=== PATIENT | male | born 1995 | race Caucasian/White ===

== ENCOUNTER 2019-11-27 10:12 | Emergency (ER) | payer OTHER ==
[2019-11-27] MEDS ORDERED: Sodium Chloride 0.9% 10 ML Syringe FLUSH PRN ×2 (10:34→10:42)
[2019-11-27] MEDS ORDERED: HYDROmorphone 0.5 MG/0.5 ML Syringe IVPUSH ONE (10:36)
[2019-11-27] MEDS ORDERED: Iopamidol 755 Mg/ML 100 ML Bottle IVPUSH ONE (10:42)
--- NOTE | 2019-11-27 11:54 | CT ---
CT abdomen and pelvis Technique: Multiple axial sections were obtained from above the dome of the diaphragm inferiorly through the pubic symphysis. Intravenous contrast was utilized. No oral contrast has been given. Delayed images were also obtained through the bladder. Comparison: No prior abdominal imaging is available. Findings: Visualized lung bases show nothing acute. Liver shows no focal parenchymal abnormality. Spleen appears within normal limits. Adrenal glands show no nodule. Kidneys show symmetric contrast enhancement without hydronephrosis or mass. Gallbladder contains no calcified gallstones. Pancreas appears within normal limits. Aorta shows no aneurysm. No retroperitoneal adenopathy or mesenteric abnormalities are seen. No free fluid or inflammatory change is appreciated. Appendix is believed to be seen and it is felt to be normal in size. Delayed images show contrast within the distal ureters and bladder. Bone window settings were reviewed which show spondylolytic defects at L5-S1. No acute osseous finding is appreciated. Impression: 1. Nothing acute is appreciated on CT study of the abdomen and pelvis. Diagnostic code #2 This report was dictated in [place] Standard Time
--- NOTE | 2019-11-27 12:04 | CT ---
CT lumbar spine Technique: Multiple axial sections were obtained from above the T10-T11 disc through the L5-S1 disc. Reconstructed coronal and sagittal images were obtained. T9-T10: Fairly severe disc space narrowing is seen. No central canal stenosis or neural foraminal stenosis is seen. T10-T11: Posterior disc is preserved. No central canal stenosis or neural foraminal stenosis is seen. T11-T12: Mild posterior disc space narrowing is seen. Posterior disc is preserved. No central canal stenosis or neural foraminal stenosis is seen. T12-L1: Posterior disc is preserved. No central canal stenosis or neural foraminal stenosis is seen. L1-L2: Posterior disc is preserved. No central canal stenosis or neural foraminal stenosis is seen. L2-L3: Posterior disc is preserved. No central canal stenosis or neural foraminal stenosis is seen. L3-L4: Slight asymmetric disc bulge posteriorly to the right of midline is seen. This mildly indents the anterior thecal sac. No central canal stenosis or neural foraminal stenosis is seen. L4-L5: Minimal posterior disc bulge to the midline is seen. No central canal stenosis or neural foraminal stenosis is seen. L5-S1: Slight physiologic disc bulge is noted posteriorly. No central canal stenosis or neural foraminal stenosis is seen. Spondylolytic defects are seen bilaterally at this level. No acute fracture is seen. No abnormal subluxation is seen. Impression: 1. Slight disc bulging as noted above. 2. Spondylolytic defects at L5-S1. 3. No acute fracture or abnormal subluxation is seen. Diagnostic code #2 This report was dictated in [place] Standard Time
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
== END 2019-11-27 12:33 | disposition home or self-care (01) ==
LOC: JD.ED 10:12
DX: M51.26 Other intervertebral disc displacement, lumbar region (principal); V89.2XXA Person injured in unspecified motor-vehicle accident, traffic, initial encounter
CPT/HCPCS: 36415; 72131; 74177; 80053; 80306; 81001; 83690; 85025; 96374; 99284; J1170; Q9967; 99283